=== PATIENT | male | born 1955 | race Caucasian/White ===

== ENCOUNTER 2019-11-21 07:34 | Outpatient (CLI) | payer OTHER, SELFPAY ==
--- NOTE | ~2019-11-21 | CT_ITS ---
EXAMINATION: CTA chest DATE: 11/21/2019 08:20 INDICATION: Thoracic aortic aneurysm. TECHNIQUE: Computed tomographic angiography (CTA) of the chest was performed with 100 mL Omnipaque-35 0 intravenous contrast. Automated exposure control and iterative reconstruction technique were employ ed. The dose-length product was 603.14 mGy-cm. Maximum intensity projection 3D-reconstructions of the aorta and other arteries were constructed by the technologist on a separate workstation. COMPARISON: Chest CT 04/15/2018 FINDINGS: There is mild atelectasis bilaterally. There are subpleural bands in paraspinal right lower lobe. There is mild emphysema. Calcified left lung nodules and calcified left hilar and mediastinal lymph nodes are consistent with old granulomatous disease. No pleural effusion. Cardiomegaly is noted . No pericardial effusion. There are calcifications of aortic valve. There is ectasia of ascending ao rta measuring 4.4 cm. Calcifications in the spleen are consistent with old granulomatous disease. The re is a 14 mm cyst in the liver. There is mild thoracic spondylosis and moderate cervical spondylosis . IMPRESSION: 1. Stable ectasia of ascending aorta measuring 4.4 cm. 2. Mild emphysema. Reviewed, dictated and finalized at location A.
[2019-11-21 08:07] LABS: Estimated Glomerular Filt Rate > 60
== END 2019-11-21 07:35 | disposition home or self-care (01) ==
LOC: ANHIMG 07:47
PROVIDERS: PCP Family Medicine; Visit Provider Internal Medicine Cardiovascular Disease
DX: Q23.1 Congenital insufficiency of aortic valve (principal); I77.810 Thoracic aortic ectasia; J43.9 Emphysema, unspecified
CPT/HCPCS: 36415; 71275; Q9967

== ENCOUNTER 2021-02-06 08:47 | Emergency (ER) | payer OTHER, SELFPAY ==
[2021-02-06 08:58] VITALS: BP 134/97; PULSE 71; RESP 16; TEMP 36.5; O2SAT 99
--- NOTE | 2021-02-06 09:26 | ED.URI ---
HPI - URI/Sore Throat General Chief Complaint: Upper Respiratory Infection Stated Complaint: cough Time Seen by Provider: 02/06/21 09:27 Source: patient Mode of arrival: ambulatory Limitations: no limitations History of Present Illness HPI Narrative: Perry Kumar is a 65 yo male with a PMH of HTN, high cholesterol, who comes to [facility] with drainage and a cough that been going on for a week and a half. He attributes it to the pulling up carpet in the 9-year-old house and he has taken NyQuil DayQuil and multiple other [id number] meds with no success. Cough is productive Related Data Home Medications Medication Instructions Recorded Confirmed rosuvastatin 40 mg PO DAILY 02/06/21 02/06/21 Allergies Allergy/AdvReac Type Severity Reaction Status Date / Time No Known Allergies Allergy Unverified 11/01/17 08:00 Review of Systems Review of Systems: CONSTITUTIONAL: Denies fever, chills, sweats. EYES: Denies visual changes, redness, discharge. ENT: Has rhinorrhea, has congestion, sore throat, otalgia. CARDIOVASCULAR: Denies chest pain, palpitations, edema. RESPIRATORY: Denies dyspnea, wheezing, cough GASTROINTESTINAL: Denies abdominal pain, nausea, vomiting, diarrhea. GENITOURINARY: Denies dysuria, hematuria, abnormal discharge SKIN: Denies rash or itching. NEUROLOGIC: Denies numbness, or focal weakness. PSYCHIATRIC: Denies anxiety or depression. [facility] Past Medical History Medical History Aortic root dilation HLD (hyperlipidemia) Family History Family History Father Hypertension Cerebrovascular accident Family history of lymphoma Family history of malignant melanoma Mother Family history of malignant neoplasm of breast in first degree relative Social History Social History Social History: Smoking status: Never smoker Second hand tobacco smoke exposure: No Alcohol intake: current Drinks per week: 2 Substance use: never Substance use type: does not use Gender identity (if verbalized by the patient): Male Sexual Orientation (if Verbalized by the Patient): Straight or Heterosexual Comments At time of signature, I agree with nursing past medical, surgical, social and family history. There is no relevant family history pertinent to the presenting complaint. Exam Narrative: GENERAL: This is a well-nourished, well-developed patient, in mild distress. HEAD: normocephalic, atraumatic. EYES: Sclera clear/white. Vision is grossly intact. EARS: External ears normal, auditory canals clear and without drainage, TMs normal without perforation. Hearing grossly intact. NOSE: External nose normal without nasal discharge, nares without redness, has rhinorrhea. THROAT: Mucous membranes moist, posterior pharynx mild erythema NECK: Neck supple, non-tender CARDIOVASCULAR: Regular rate and rhythm without murmurs, gallops, or rubs. RESPIRATORY: Clear to auscultation. Breath sounds equal bilaterally. No wheezes, rales, or rhonchi. GASTROINTESTINAL: Abdomen soft, non-tender, SKIN: warm, intact with no suspicious lesions or rash, good texture and turgor. NEURO: awake, alert, and oriented to person, place and time. There were no obvious focal neurologic abnormalities. Steady gait EXTREMITIES: Normal range of motion. BACK: Nontender without deformity Course Course Emergency Course: Patient is here for cough and rhinorrhea x1/2 weeks he has not had a Covid vaccine Rapid Covid-positive Discharged on Zyrtec, Flonase, prednisone, Tessalon Perles discussed quarantine Vital Signs Vital signs: Vital Signs Temperature 97.7 F 02/06/21 08:58 Pulse Rate 71 02/06/21 08:58 Respiratory Rate 16 02/06/21 08:58 Blood Pressure 134/97 H 02/06/21 08:58 Pulse Oximetry 99 02/06/21 08:58 Temperature 97.7 F 02/06/21
== END 2021-02-06 10:18 | disposition home or self-care (01) ==
PROVIDERS: Emergency Provider Nurse Practitioner; PCP Family Medicine
DX: U07.1 COVID-19 (principal); E78.5 Hyperlipidemia, unspecified; I10 Essential (primary) hypertension
CPT/HCPCS: 87426; 99213; C9803; G0463

== ENCOUNTER 2022-08-11 09:46 | Outpatient (CLI) | payer OTHER, SELFPAY ==
--- NOTE | ~2022-08-11 | CT_ITS ---
EXAMINATION:CT diagnostic chest w con DATE: 08/11/2022 10:12 INDICATION: Bicuspid aortic valve. Aortic root dilatation. TECHNIQUE: Computed tomography (CT) of the chest was performed with 75 mL Omnipaque 350 intravenous c ontrast. Automated exposure control and iterative reconstruction technique were employed. The dose-le ngth product (DLP) was 351.24 mGy-cm. COMPARISON: Chest CT 11/21/2019 FINDINGS: There is mild scarring in the paraspinal lower lobes. There is mild atelectasis bilaterally . There is mild emphysema. A calcified left lung nodule and calcified left hilar and mediastinal lymp h nodes are consistent with old granulomatous disease. No pleural effusion. Cardiomegaly is noted. Th ere are coronary artery calcifications. There are calcifications aortic valve. The aorta measures 4.8 cm at the sinuses of Valsalva, 3.9 cm at the sinotubular junction, 4.5 cm in the mid ascending aorta , 3.2 cm at the isthmus, and 3.0 cm in the mid descending aorta. Calcifications in the liver and sple en are consistent with old granulomatous disease. There is a 17 mm cyst in the liver. There is mild t horacic spondylosis. There is an old healed right rib fracture. IMPRESSION: 1. Annuloaortic ectasia measuring up to 4.8 cm at the sinuses of Valsalva. 2. Mild emphysema. Reviewed, dictated and finalized at location A. ITIONIST
[2022-08-11 10:05] LABS: Estimated Glomerular Filt Rate > 60
== END 2022-08-11 09:47 | disposition home or self-care (01) ==
PROVIDERS: PCP Family Medicine; Visit Provider Internal Medicine Cardiovascular Disease
DX: Q23.1 Congenital insufficiency of aortic valve (principal); I77.810 Thoracic aortic ectasia; J43.9 Emphysema, unspecified
CPT/HCPCS: 71260; Q9967

== ENCOUNTER 2023-02-23 07:35 | Outpatient (CLI) | payer MEDICARE, OTHER, SELFPAY ==
--- NOTE | ~2023-02-23 | CT_ITS ---
EXAMINATION: CTA chest DATE: 02/23/2023 08:06 INDICATION: Aortic root dilatation TECHNIQUE: Computed tomographic angiography (CTA) of the chest was performed with 100 mL Omnipque-350 intravenous contrast. Maximum intensity projection 3D-reconstructions of the aorta and other arterie s were constructed by the technologist on a separate workstation. The dose-length product (DLP) was 4 69.53 mGy-cm. Automated exposure control and iterative reconstruction technique were employed. COMPARISON: 08/11/2022, 11/21/2019 FINDINGS: The aorta measures 4.9 cm at the sinuses of Valsalva. The ascending aorta measures 4.4 cm a t the level of the main pulmonary artery. No dissection is identified. There is mild emphysema. There is mild dependent atelectasis of the lungs. No pleural effusion or pneumothorax. There is calcified coronary artery atherosclerosis. Cardiomegaly is noted. There is a 1.4 cm cyst of the liver. There is mild thoracic spondylosis. IMPRESSION: 1. Stable annuloaortic ectasia measuring 4.9 cm at the sinuses of Valsalva. Reviewed, dictated and finalized at location B.
[2023-02-23 07:58] LABS: Estimated Glomerular Filt Rate > 60
== END 2023-02-23 07:36 | disposition home or self-care (01) ==
LOC: ANHIMG 07:41
PROVIDERS: PCP Family Medicine; Visit Provider Internal Medicine Cardiovascular Disease
DX: I77.810 Thoracic aortic ectasia (principal)
CPT/HCPCS: 71275; Q9967